=== PATIENT | male | born 1935 | race Caucasian/White ===

== ENCOUNTER 2017-01-05 15:49 | Inpatient (IN) | payer MEDICARE, OTHER ==
[~2017-01-05] VITALS: Ht 177.8 cm; Wt 104.9 kg
[2017-01-05] MEDS ORDERED: ONDANSETRON PF 4 MG/2 ML VIAL. IV ONE (16:15)
[2017-01-05] MEDS ORDERED: IV NORMAL SALINE 500ML BAG 500 ML IV ONE (16:15)
--- NOTE | 2017-01-05 16:15 | PHYS DOC ---
Past Medical History Past Medical History: CAD, Hypertension Additional Past Surgical Histo: coronary stents Adult General Chief Complaint Chief Complaint: SYNCOPE HPI HPI Patient is a 81 year old male who presents after syncopal episode. Patient was at his son's house and was sitting down when he says he started feeling sick, became sweaty, and then passed out. Patient's son reports he was unconscious for approximately 60-90 seconds. Patient back to normal mental status. He still complains of some nausea, but says he is otherwise feeling well other than general weakness. He denies any chest discomfort or shortness of breath at any time. Patient did have a similar episode in the remote past. Review of Systems Review of Systems Constitutional: Syncope, general weakness. Denies fever or chills Eyes: Denies change in visual acuity or eye pain HENT: Denies nasal congestion or sore throat Respiratory: Denies cough or shortness of breath Cardiovascular: Denies chest pain GI: Nausea. Denies abdominal pain, vomiting, bloody stools or diarrhea : Denies dysuria or hematuria Musculoskeletal: Denies back pain or joint pain Integument: Denies rash or skin lesions Neurologic: Denies headache, focal weakness or sensory changes Current Medications Current Medications Current Medications Medications (Trade) Dose Ordered Sig/Maribel Start Time Stop Time Status Last Admin Dose Admin Ondansetron HCl (Zofran) 4 mg 1X ONCE 01/05/17 16:15 01/05/17 17:09 DC 01/05/17 16:15 4 MG Sodium Chloride (Iv Sodium Chloride 0.9% 500ml Bag) 500 ml @ 500 mls/hr 1X ONCE 01/05/17 16:15 01/05/17 17:14 DC 01/05/17 16:15 500 MLS/HR Allergies Allergies Allergies Coded Allergies Type Severity Reaction Last Updated Verified iodine Allergy Intermediate 01/05/17 Yes Physical Exam Physical Exam Constitutional: Well developed, well nourished, no acute distress, non-toxic appearance HENT: Normocephalic, atraumatic, bilateral external ears normal Eyes: PERRL, EOMI, conjunctiva normal, no discharge Neck: Normal range of motion, no stridor Cardiovascular: Bradycardic, regular rhythm, no murmur Lungs & Thorax: Bilateral breath sounds clear to auscultation Abdomen: Bowel sounds normal, soft, non-distended, no TTP Skin: Warm, dry, no erythema, no rash Extremities: No obvious deformity, no edema Neurologic: Alert and oriented X 3, no gross deficits noted Psychologic: Affect normal, judgement normal, mood normal Current Patient Data Vital Signs Vital Signs Date Time Temp Pulse Resp B/P Pulse Ox O2 Delivery O2 Flow Rate FiO2 01/05/17 17:15 62 18 124/66 99 01/05/17 16:50 97.5 Room Air 97.5 Lab Values Laboratory Tests Test 01/05/17 16:10 White Blood Count 10.5x10^3/uL (4.0-11.0) Red Blood Count 4.78x10^6/uL (4.30-5.70) Hemoglobin 14.4g/dL (13.0-17.5) Hematocrit 44.0% (39.0-53.0) Mean Corpuscular Volume 92fL (79-100) Mean Corpuscular Hemoglobin 30pg (25-35) Mean Corpuscular Hemoglobin Concent 33g/dL (31-37) Red Cell Distribution Width 14.3% (11.5-14.5) Platelet Count 176x10^3/uL (140-400) Neutrophils (%) (Auto) 66% (31-73) Lymphocytes (%) (Auto) 21% (24-48) L Monocytes (%) (Auto) 7% (0-9) Eosinophils (%) (Auto) 5% (0-3) H Basophils (%) (Auto) 1% (0-3) Neutrophils # (Auto) 7.0x10^3uL (1.8-7.7) Lymphocytes # (Auto) 2.2x10^3/uL (1.0-4.8) Monocytes # (Auto) 0.8x10^3/uL (0.0-1.1) Eosinophils # (Auto) 0.5x10^3/uL (0.0-0.7) Basophils # (Auto) 0.1x10^3/uL (0.0-0.2) Sodium Level 144mmol/L (136-145) Potassium Level 4.0mmol/L (3.5-5.1) Chloride Level 106mmol/L (98-107) Carbon Dioxide Level 25mmol/L (21-32) Anion Gap 13 (6-14) Blood Urea Nitrogen 21mg/dL (8-26) Creatinine 1.3mg/dL (0.7-1.3) Estimated GFR (Cockcroft-Gault) 53.1 BUN/Creatinine Ratio 16 (6-20) Glucose Level 120mg/dL (70-99) H Calcium Level 9.3mg/dL (8.5-10.1) Magnesium Level 1.9mg/dL (1.8-2.4) Total Bilirubin 0.5mg/dL (0.2-1.0) Aspartate Amino Transferase (AST) 21U/L (15-37) Alanine Aminotransferase (ALT) 25U/L (16-63) Alkaline Phosphatase 86U/L (46-116) Troponin I Quantitative < 0.017ng/mL (0.000-0.055) AE-Ckt-V-Type Natriuretic Peptide 115pg/mL (0-449) Total Protein 6.7g/dL (6.4-8.2) Albumin 3.7g/dL (3.4-5.0) Albumin/Globulin Ratio 1.2 (1.0-1.7) Laboratory Tests 01/05/17 16:10 Laboratory Tests 01/05/17 16:10 EKG EKG EKG (my read): sinus bradycardia, rate 54, normal axis, single PVC, no acute ST/ T changes Radiology/Procedures Radiology/Procedures CXR: IMPRESSION: No definite focal airspace consolidation. Course & Med Decision Making Course & Med Decision Making Pertinent Labs and Imaging studies reviewed. (See chart for details) Patient is 81-year-old male who presents after syncopal episode. Concern for possible serious etiology given age and cardiac history. Will check EKG, chest x -ray, labs to evaluate. Fluid bolus and dose of Zofran ordered for relief of symptoms. EKG notable for bradycardia, patient takes metoprolol which could be related to syncope. Chest x-ray results as above. Lab results unremarkable. Discussed results with patient and family. Discussed with Dr. Green, will admit under her care for further evaluation and treatment. Dragon Disclaimer Dragon Disclaimer This electronic medical record was generated, in whole or in part, using a voice recognition dictation system. Departure Departure Impression: Primary Impression: Syncope Additional Impression: Bradycardia Disposition: 09 ADMITTED INPATIENT Admitting Physician: Peter, Cunmei Condition: GUARDED Problem Qualifiers HOSEA ROBIN MD Jan 05, 2017 16:15
--- NOTE | 2017-01-05 16:45 | RAD ---
INDICATION: syncope, r/o acute process COMPARISON: None. FINDINGS: Single view of chest obtained. Calcific atherosclerosis. No definite focal airspace consolidation or edema. No grossly displaced acute appearing fracture. IMPRESSION: No definite focal airspace consolidation.
[2017-01-05 17:14] LABS: BASO # 0.1 x10^3/uL (0.0-0.2); BASO % 1 % (0-3); EOS % 5 % (0-3); HEMOGLOBIN 14.4 g/dL (13.0-17.5); LYMPH # 2.2 x10^3/uL (1.0-4.8); LYMPH % 21 % (24-48); MEAN CORPUSCULAR HEMOGLOBIN 30 pg (25-35); MEAN CORPUSCULAR HGB CONC 33 g/dL (31-37); MEAN CORPUSCULAR VOLUME 92 fL (79-100); MONO % 7 % (0-9); NEUT % 66 % (31-73); PLATELET COUNT 176 x10^3/uL (140-400); RED BLOOD COUNT 4.78 x10^6/uL (4.30-5.70); RED CELL DISTRIBUTION WIDTH 14.3 % (11.5-14.5); WHITE BLOOD COUNT 10.5 x10^3/uL (4.0-11.0)
--- NOTE | 2017-01-05 17:20 | EKG ---
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
[2017-01-05 17:31] LABS: CALCIUM 9.3 mg/dL (8.5-10.1); CREATININE 1.3 mg/dL (0.7-1.3); GFR 53.1
[2017-01-05 17:33] LABS: ALBUMIN 3.7 g/dL (3.4-5.0); ALBUMIN/GLOBULIN RATIO 1.2 (1.0-1.7); MAGNESIUM 1.9 mg/dL (1.8-2.4); TOTAL BILIRUBIN 0.5 mg/dL (0.2-1.0); TOTAL PROTEIN 6.7 g/dL (6.4-8.2)
[2017-01-05] MEDS ORDERED: ONDANSETRON PF 4 MG/2 ML VIAL. IV PRN ×2 (18:00→18:30)
[2017-01-05] MEDS ORDERED: ACETAMINOPHEN 325 MG TABLET. PO PRN ×2 (18:00→18:30)
[2017-01-05] MEDS ORDERED: hydrALAZINE 20 MG/ML VIAL. IVP PRN (18:30)
[2017-01-05] MEDS ORDERED: ALBUTEROL SULFATE 2.5 MG/3 ML NEBU. NEB PRN (18:30)
--- NOTE | 2017-01-05 18:31 | PDOC1 ---
History and Physical Date of Admission Date of Admission 01/05/17 Identification/Chief Complaint Chief Complaint syncope Problems: Source Source: Chart review, Patient History of Present Illness History of Present Illness 81yo M, HTN, cad , COMES for syncope. He smoked cigar with his son today as usual. then came back home, sitting down, had coffee and muffin, then he started to cough "clearing up the throat", then syncoped, falling backwards in the chair, for 1min. He woke up, with some cold, diaphoresis, mild confusion for about 20min, denies bitting tongue, chest pain, sob. He still feels like to cough a little bit. Before the syncope, he was doing fine, no fever, chills, no severe cough or sob , N/V. HE was found sourav in ER, with metoprolol. Past Medical History Cardiovascular: CAD, HTN Past Surgical History Past Surgical History: No pertinent history Family History Family History: No Significant Social History Smoke: <1 pack per day ALCOHOL: social Drugs: None Current Problem List Problem List Problems Medical Problems: (1) Bradycardia Status: Acute (2) Syncope Status: Acute Current Medications Current Medications Current Medications Medications (Trade) Dose Ordered Sig/Maribel Start Time Stop Time Status Last Admin Dose Admin Acetaminophen (Tylenol) 650 mg PRN Q4HRS PRN 01/05/17 18:00 01/06/17 17:59 Ondansetron HCl (Zofran) 4 mg PRN Q8HRS PRN 01/05/17 18:00 01/06/17 17:59 Sodium Chloride (Iv Sodium Chloride 0.9% 500ml Bag) 500 ml @ 500 mls/hr 1X ONCE 01/05/17 16:15 01/05/17 17:14 DC 01/05/17 16:15 500 MLS/HR Allergies Allergies Allergies Coded Allergies Type Severity Reaction Last Updated Verified iodine Allergy Intermediate 01/05/17 Yes morphine Adverse Reaction Intermediate VISUAL AND AUDITORY HALLUCINATIONS 01/05 Yes ROS Review of System CONSTITUTIONAL: No fever or chills EYES: No recent changes SKIN: No rash or itching CARDIOVASCULAR: No chest pain, syncope, palpitations, or edema RESPIRATORY: No SOB or cough GASTROINTESTINAL: No nausea, vomiting or abdominal pain NEUROLOGICAL: No headaches or weakness ENDOCRINE: No cold or heat intolerance GENITOURINARY: No urgency or frequency of urination MUSCULOSKELETAL: No back pain or joint pain LYMPHATICS: No enlarged lymph nodes PSYCHIATRIC: No anxiety or depression Physical Exam Physical Exam GEN.: No apparent distress. Alert and oriented. HEENT: Head is normocephalic, atraumatic, hearing loss NECK: Supple. LUNGS: Clear to auscultation. HEART: RRR, S1, S2 present. Peripheral pulses intact ABDOMEN: Soft, nontender. Positive bowel sounds. EXTREMITIES: Without any cyanosis. NEUROLOGIC: Normal speech, normal tone PSYCHIATRIC: Normal affect, normal mood. SKIN: No ulcerations Vitals Vitals Vital Signs Date Time Temp Pulse Resp B/P Pulse Ox O2 Delivery O2 Flow Rate FiO2 01/05/17 17:15 62 18 124/66 99 01/05/17 16:50 97.5 Room Air 97.5 Labs Labs Laboratory Tests Test 01/05/17 16:10 White Blood Count 10.5x10^3/uL (4.0-11.0) Red Blood Count 4.78x10^6/uL (4.30-5.70) Hemoglobin 14.4g/dL (13.0-17.5) Hematocrit 44.0% (39.0-53.0) Mean Corpuscular Volume 92fL (79-100) Mean Corpuscular Hemoglobin 30pg (25-35) Mean Corpuscular Hemoglobin Concent 33g/dL (31-37) Red Cell Distribution Width 14.3% (11.5-14.5) Platelet Count 176x10^3/uL (140-400) Neutrophils (%) (Auto) 66% (31-73) Lymphocytes (%) (Auto) 21% (24-48) Monocytes (%) (Auto) 7% (0-9) Eosinophils (%) (Auto) 5% (0-3) Basophils (%) (Auto) 1% (0-3) Neutrophils # (Auto) 7.0x10^3uL (1.8-7.7) Lymphocytes # (Auto) 2.2x10^3/uL (1.0-4.8) Monocytes # (Auto) 0.8x10^3/uL (0.0-1.1) Eosinophils # (Auto) 0.5x10^3/uL (0.0-0.7) Basophils # (Auto) 0.1x10^3/uL (0.0-0.2) Sodium Level 144mmol/L (136-145) Potassium Level 4.0mmol/L (3.5-5.1) Chloride Level 106mmol/L (98-107) Carbon Dioxide Level 25mmol/L (21-32) Anion Gap 13 (6-14) Blood Urea Nitrogen 21mg/dL (8-26) Creatinine 1.3mg/dL (0.7-1.3) Estimated GFR (Cockcroft-Gault) 53.1 BUN/Creatinine Ratio 16 (6-20) Glucose Level 120mg/dL (70-99) Calcium Level 9.3mg/dL (8.5-10.1) Magnesium Level 1.9mg/dL (1.8-2.4) Total Bilirubin 0.5mg/dL (0.2-1.0) Aspartate Amino Transf (AST/SGOT) 21U/L (15-37) Alanine Aminotransferase (ALT/SGPT) 25U/L (16-63) Alkaline Phosphatase 86U/L (46-116) Troponin I Quantitative < 0.017ng/mL (0.000-0.055) WT-Bhr-D-Type Natriuretic Peptide 115pg/mL (0-449) Total Protein 6.7g/dL (6.4-8.2) Albumin 3.7g/dL (3.4-5.0) Albumin/Globulin Ratio 1.2 (1.0-1.7) Laboratory Tests Test 01/05/17 16:10 White Blood Count 10.5x10^3/uL (4.0-11.0) Red Blood Count 4.78x10^6/uL (4.30-5.70) Hemoglobin 14.4g/dL (13.0-17.5) Hematocrit 44.0% (39.0-53.0) Mean Corpuscular Volume 92fL (79-100) Mean Corpuscular Hemoglobin 30pg (25-35) Mean Corpuscular Hemoglobin Concent 33g/dL (31-37) Red Cell Distribution Width 14.3% (11.5-14.5) Platelet Count 176x10^3/uL (140-400) Neutrophils (%) (Auto) 66% (31-73) Lymphocytes (%) (Auto) 21% (24-48) Monocytes (%) (Auto) 7% (0-9) Eosinophils (%) (Auto) 5% (0-3) Basophils (%) (Auto) 1% (0-3) Neutrophils # (Auto) 7.0x10^3uL (1.8-7.7) Lymphocytes # (Auto) 2.2x10^3/uL (1.0-4.8) Monocytes # (Auto) 0.8x10^3/uL (0.0-1.1) Eosinophils # (Auto) 0.5x10^3/uL (0.0-0.7) Basophils # (Auto) 0.1x10^3/uL (0.0-0.2) Sodium Level 144mmol/L (136-145) Potassium Level 4.0mmol/L (3.5-5.1) Chloride Level 106mmol/L (98-107) Carbon Dioxide Level 25mmol/L (21-32) Anion Gap 13 (6-14) Blood Urea Nitrogen 21mg/dL (8-26) Creatinine 1.3mg/dL (0.7-1.3) Estimated GFR (Cockcroft-Gault) 53.1 BUN/Creatinine Ratio 16 (6-20) Glucose Level 120mg/dL (70-99) Calcium Level 9.3mg/dL (8.5-10.1) Magnesium Level 1.9mg/dL (1.8-2.4) Total Bilirubin 0.5mg/dL (0.2-1.0) Aspartate Amino Transf (AST/SGOT) 21U/L (15-37) Alanine Aminotransferase (ALT/SGPT) 25U/L (16-63) Alkaline Phosphatase 86U/L (46-116) Troponin I Quantitative < 0.017ng/mL (0.000-0.055) LT-Yyz-V-Type Natriuretic Peptide 115pg/mL (0-449) Total Protein 6.7g/dL (6.4-8.2) Albumin 3.7g/dL (3.4-5.0) Albumin/Globulin Ratio 1.2 (1.0-1.7) VTE Prophylaxis Ordered VTE Prophylaxis Devices: Yes VTE Pharmacological Prophylaxi: Yes Assessment/Plan Assessment/Plan 1. syncope, 2/2 vasovagal possibly 2. bradycardia, sinus, on metoprolol 3. h/o CAD with 2 stents 2003, 2011 4. HTN 5. smoke cigars plan: 1. neuro, card consult 2. hold metoprolol if cont sourav, now HR 80s 3. need home meds 4. check orthostatic BP 5. PTOT dvt ppx BRIANNA GERMAN MD Jan 05, 2017 18:31
[2017-01-05 19:50] VITALS: BP 140/70
[2017-01-05] MEDS ORDERED: LOVA40TA2 PO (20:53)
[2017-01-05] MEDS ORDERED: GABA-586 PO (20:53)
[2017-01-05] MEDS ORDERED: PANT20TA2 PO (20:53)
[2017-01-05] MEDS ORDERED: LISI-334 PO (20:53)
[2017-01-05] MEDS ORDERED: ASPI81TA50 PO (20:53)
[2017-01-05] MEDS ORDERED: LORA10TA3 PO (20:53)
[2017-01-05] MEDS ORDERED: METO25TA4 PO (20:53)
[2017-01-05] MEDS: METOPROLOL TART IMMED RELEASE 25 MG TABLET PO SCH (20:59)
[2017-01-05] MEDS: ATORVASTATIN CALCIUM 10 MG TABLET. PO SCH (21:56)
[2017-01-05] MEDS: GABAPENTIN 300 MG CAPSULE. PO SCH (21:57)
[2017-01-05] MEDS ORDERED: BENZOCAINE/MENTHOL LOZENGE. PO PRN (22:15)
[2017-01-05 23:33] VITALS: BP 119/70
[2017-01-06] VITALS (7 sets, daily range): BP systolic 119–156; BP diastolic 52–90
--- NOTE | 2017-01-06 00:25 | ACF ---
Admission Forms Criteria SYNCOPE Clinical Indications for Admission to Inpatient Care ( Place 'X' for any and all applicable criteria): Admission is indicated for syncope and ANY ONE of the following (1)(2)(3)(4)(5) (6)(7) : [X ]I. Inpatient admission required rather than observation care (Also use Syncope: Observation Care Criteria as appropriate) because of ANY ONE of the following: [ ]a) Hemodynamic instability that is severe or persistent [X ]b) Cardiac arrhythmias of immediate concern identified or strongly suspected (eg, needs electrophysiologic study) [ ]c) Acute coronary syndrome identified (Also use Myocardial Infarction or Angina Criteria form ) [ ]d) Structural cardiac disorder (eg, aortic stenosis) suspected as cause that requires immediate correction [ ]e) Respiratory symptoms (eg, dyspnea, tachypnea) that are severe or persistent [ ]f) Neurologic signs or symptoms that are severe or persistent ( eg, stroke, seizures, altered mental status) [ ]g) Severe electrolyte abnormalities requiring inpatient care [ ]h) Supplemental oxygen or respiratory treatment for over 24 hrs that are performable only in acute inpatient setting [ ]i) IV fluid to replace significant ongoing (eg, for over 24 hrs ) losses (>3 L/m2 per day) [ ]j) Continuous intravenous infusion of anticoagulation, platelet inhibitor, vasoactive, or antiarrhythmic medication(15)(16) [ ]k) Pulmonary artery catheter monitoring [ ]l) Temporary pacemaker placement(17) [ ]m) Emergent cardioversion(18) [ X]n) Other conditions, treatment or monitoring requiring inpatient admission [ ]II. Suspicion of imminently dangerous cause (eg, rare causes like pericardial tamponade, pulmonary embolism) [ ]III. Syncope causing severe injury requiring hospitalization Extended stay beyond goal length of stay may be needed for(28) [ ]a) Dangerous arrhythmia(15)(23)(27)(29) [ ]b) Myocardial ischemia [ ]c) Seizure disorder [ ]d) Syncope-related injuries The original [employer] content created by [employer] has been revised. The portions of the content which have been revised are identified through the use of italic text or in bold, and [employer] has neither reviewed nor approved the modified material. All other unmodified content is copyright [employer]. Please see references footnoted in the original [facility] edition 2016 Admission Criteria Met?: Yes KENIA ZHANG Jan 06, 2017 00:25
[2017-01-06 05:54] LABS: BASO % 1 % (0-3); EOS % 6 % (0-3); HEMATOCRIT 40.2 % (39.0-53.0); HEMOGLOBIN 13.2 g/dL (13.0-17.5); LYMPH # 1.5 x10^3/uL (1.0-4.8); LYMPH % 20 % (24-48); MEAN CORPUSCULAR HEMOGLOBIN 30 pg (25-35); MEAN CORPUSCULAR HGB CONC 33 g/dL (31-37); MEAN CORPUSCULAR VOLUME 91 fL (79-100); MONO % 9 % (0-9); NEUT % 64 % (31-73); PLATELET COUNT 150 x10^3/uL (140-400); RED CELL DISTRIBUTION WIDTH 14.2 % (11.5-14.5); WHITE BLOOD COUNT 7.5 x10^3/uL (4.0-11.0)
[2017-01-06 06:36] LABS: CALCIUM 8.6 mg/dL (8.5-10.1); CREATININE 1.1 mg/dL (0.7-1.3); GFR 64.4; POTASSIUM 4.1 mmol/L (3.5-5.1)
[2017-01-06] MEDS ORDERED: CETIRIZINE HCL 10 MG TABLET PO PRN (09:00)
[2017-01-06] MEDS: ASPIRIN ENTERIC COATED 81 MG TABLET.DR. PO SCH (09:00)
[2017-01-06] MEDS: PANTOPRAZOLE 40 MG TABLET. PO SCH (09:00)
[2017-01-06] MEDS: LISINOPRIL 20 MG TABLET PO SCH (09:01)
[2017-01-06] MEDS: METOPROLOL TART IMMED RELEASE 25 MG TABLET PO SCH (09:01)
--- NOTE | 2017-01-06 09:15 | PDOC2 ---
CARDIAC CONSULT DATE OF CONSULT Date of Consult DATE: 01/06/17 TIME: 09:12 REASON FOR CONSULT Reason for Consult: syncope, bradycardia REFERRING PHYSICIAN Referring Physician: Dr. Gaxiola SOURCE Source: Chart review, Patient HISTORY OF PRESENT ILLNESS HISTORY OF PRESENT ILLNESS This is an 81 male who presented secondary to syncopal episode. Patient reports he was sitting in chair yesterday afternoon when episode occurred. Reports feeling weak, nauseated, and diaphoretic, then subsequently passed out. reports complete LOC for approximately 1-2 minutes. EMS was called. reports HR was 39 upon EMS arrival. No previous syncopal episodes. Denies any chest pain, palpitations, SOA, HERRERA, or LE edema. No recent illness or fevers. Does have a h/o CAD with remote PCI/stenting and follows with Dr. Kong at [facility]. Most recent cath approximately 2 yrs ago and did not require intervention. No recent echocardiogram. PAST MEDICAL HISTORY Cardiovascular: CAD (s/p PCI/stents 2001, 2011), HTN, Hyperlipidemia Pulmonary: Asthma CENTRAL NERVOUS SYSTEM: Other (no pertinent hx) GI: GERD Heme/Onc: No pertinent hx Hepatobiliary: No pertinent hx Psych: No pertinent hx Musculoskeletal: Osteoarthritis Rheumatologic: No pertinent hx Infectious disease: No pertinent hx ENT: No pertinent hx Renal/: Benign prostatic enlarg. Endocrine: No pertinent hx Dermatology: No pertinent hx PAST SURGICAL HISTORY Past Surgical History: Total hip replacement (right ), Tonsillectomy, Other FAMILY HISTORY Family History: Coronary Artery Disease, Heart Disease, Hypertension SOCIAL HISTORY Smoke: No ALCOHOL: none Drugs: None Lives: with Family CURRENT MEDICATIONS CURRENT MEDICATIONS Current Medications Medications (Trade) Dose Ordered Sig/Maribel Route PRN Reason Start Time Stop Time Status Last Admin Dose Admin Sodium Chloride (Iv Sodium Chloride 0.9% 500ml Bag) 500 ml @ 500 mls/hr 1X ONCE IV 01/05/17 16:15 01/05/17 17:14 DC 01/05/17 16:15 Ondansetron HCl (Zofran) 4 mg 1X ONCE IV 01/05/17 16:15 01/05/17 17:09 DC 01/05/17 16:15 Aspirin (Ecotrin) 81 mg DAILY PO 01/06/17 09:00 01/06/17 09:00 Gabapentin (Neurontin) 300 mg HS PO 01/05/17 21:00 01/05/17 21:57 Lisinopril (Prinivil) 20 mg DAILY PO 01/06/17 09:00 01/06/17 09:01 Metoprolol Tartrate (Lopressor) 12.5 mg BID PO 01/05/17 21:00 01/06/17 09:01 Atorvastatin Calcium (Lipitor) 10 mg QHS PO 01/05/17 21:00 01/05/17 21:56 Pantoprazole Sodium (Protonix) 40 mg DAILYAC PO 01/06/17 07:30 01/06/17 09:00 Throat Lozenges (Cepacol Sore Throat Lozenge) 1 willy PRN Q2HRS PRN PO SORE THROAT 01/05/17 22:15 01/05/17 22:46 ALLERGIES ALLERGIES: Coded Allergies: iodine (Verified Allergy, Intermediate, 01/05/17) morphine (Verified Adverse Reaction, Intermediate, VISUAL AND AUDITORY HALLUCINATIONS, 01/05/17) ROS Review of System 14 point ROS conducted with pertinent positives noted above in HPI PHYSICAL EXAM General: Alert, Oriented X3, Cooperative, No acute distress HEENT: Atraumatic, Mucous membr. moist/pink Lungs: Clear to auscultation, Normal air movement Heart: Regular rate, Normal S1, Normal S2 Abdomen: Normal bowel sounds, Soft Extremities: No edema, Normal pulses Skin: No breakdown, No significant lesion Neuro: Normal speech, Sensation intact Psych/Mental Status: Mental status NL, Mood NL MUSCULOSKELETAL: Osteoarthritic changes both hands VITALS VITALS Vital Signs Date Time Temp Pulse Resp B/P Pulse Ox O2 Delivery O2 Flow Rate FiO2 01/06/17 09:01 74 140/73 01/06/17 07:00 98.4 18 96 Room Air 98.4 LABS Lab: Laboratory Tests Test 01/05/17 16:10 01/05/17 22:00 01/06/17 05:35 White Blood Count 10.5x10^3/uL (4.0-11.0) 7.5x10^3/uL (4.0-11.0) Red Blood Count 4.78x10^6/uL (4.30-5.70) 4.40x10^6/uL (4.30-5.70) Hemoglobin 14.4g/dL (13.0-17.5) 13.2g/dL (13.0-17.5) Hematocrit 44.0% (39.0-53.0) 40.2% (39.0-53.0) Mean Corpuscular Volume 92fL (79-100) 91fL (79-100) Mean Corpuscular Hemoglobin 30pg (25-35) 30pg (25-35) Mean Corpuscular Hemoglobin Concent 33g/dL (31-37) 33g/dL (31-37) Red Cell Distribution Width 14.3% (11.5-14.5) 14.2% (11.5-14.5) Platelet Count 176x10^3/uL (140-400) 150x10^3/uL (140-400) Neutrophils (%) (Auto) 66% (31-73) 64% (31-73) Lymphocytes (%) (Auto) 21% (24-48) 20% (24-48) Monocytes (%) (Auto) 7% (0-9) 9% (0-9) Eosinophils (%) (Auto) 5% (0-3) 6% (0-3) Basophils (%) (Auto) 1% (0-3) 1% (0-3) Neutrophils # (Auto) 7.0x10^3uL (1.8-7.7) 4.8x10^3uL (1.8-7.7) Lymphocytes # (Auto) 2.2x10^3/uL (1.0-4.8) 1.5x10^3/uL (1.0-4.8) Monocytes # (Auto) 0.8x10^3/uL (0.0-1.1) 0.7x10^3/uL (0.0-1.1) Eosinophils # (Auto) 0.5x10^3/uL (0.0-0.7) 0.4x10^3/uL (0.0-0.7) Basophils # (Auto) 0.1x10^3/uL (0.0-0.2) 0.0x10^3/uL (0.0-0.2) Sodium Level 144mmol/L (136-145) 144mmol/L (136-145) Potassium Level 4.0mmol/L (3.5-5.1) 4.1mmol/L (3.5-5.1) Chloride Level 106mmol/L (98-107) 108mmol/L (98-107) Carbon Dioxide Level 25mmol/L (21-32) 28mmol/L (21-32) Anion Gap 13 (6-14) 8 (6-14) Blood Urea Nitrogen 21mg/dL (8-26) 19mg/dL (8-26) Creatinine 1.3mg/dL (0.7-1.3) 1.1mg/dL (0.7-1.3) Estimated GFR (Cockcroft-Gault) 53.1 64.4 BUN/Creatinine Ratio 16 (6-20) Glucose Level 120mg/dL (70-99) 102mg/dL (70-99) Calcium Level 9.3mg/dL (8.5-10.1) 8.6mg/dL (8.5-10.1) Magnesium Level 1.9mg/dL (1.8-2.4) Total Bilirubin 0.5mg/dL (0.2-1.0) Aspartate Amino Transf (AST/SGOT) 21U/L (15-37) Alanine Aminotransferase (ALT/SGPT) 25U/L (16-63) Alkaline Phosphatase 86U/L (46-116) Troponin I Quantitative < 0.017ng/mL (0.000-0.055) < 0.017ng/mL (0.000-0.055) < 0.017ng/mL (0.000-0.055) XE-Avf-C-Type Natriuretic Peptide 115pg/mL (0-449) Total Protein 6.7g/dL (6.4-8.2) Albumin 3.7g/dL (3.4-5.0) Albumin/Globulin Ratio 1.2 (1.0-1.7) ASSESSMENT/PLAN ASSESSMENT/PLAN 1. syncope check echo to r/o contributing cardiac anomalies continue to monitor telemetry if tele/echo unrevealing, plan for event monitor at discharge. 2. bradycardia HR 39 upon EMS arrival per report no further significant bradycardia noted on telemetry -continue monitoring hold av kishan blocking agents 3. CAD s/p PCI/stenting 2011 stable. CP free continue secondary prevention 4. Hypertension controlled. 5. HLP statin therapy Problems: AZAM AVILEZ APRN Jan 06, 2017 09:15
--- NOTE | 2017-01-06 13:33 | PDOC ---
PROGRESS NOTES Chief Complaint Chief Complaint 1. syncope, 2/2 vasovagal possibly 2. bradycardia, sinus, on metoprolol 3. h/o CAD with 2 stents 2003, 2011 4. HTN 5. smoke cigars History of Present Illness History of Present Illness NO issues Wants to go home soon Claims he has no PT needs Follows with Dr. Kong (cards at [facility])\ Family at bedside PLAN: Work up of syncope on the way per cards Cancel PT/OT Dw family stays overnight - bB has been stopped sec to bradycardia Vitals Vitals Vital Signs Date Time Temp Pulse Resp B/P Pulse Ox O2 Delivery O2 Flow Rate FiO2 01/06/17 11:16 98.8 79 18 131/65 92 Room Air 98.8 Physical Exam General: Alert, Oriented X3, Cooperative, No acute distress Heart: Regular rate, Normal S1, Normal S2 Abdomen: Normal bowel sounds, Soft Extremities: No edema, Normal pulses Skin: No breakdown, No significant lesion Labs LABS Laboratory Tests Test 01/05/17 16:10 01/05/17 22:00 01/06/17 05:35 White Blood Count 10.5x10^3/uL (4.0-11.0) 7.5x10^3/uL (4.0-11.0) Red Blood Count 4.78x10^6/uL (4.30-5.70) 4.40x10^6/uL (4.30-5.70) Hemoglobin 14.4g/dL (13.0-17.5) 13.2g/dL (13.0-17.5) Hematocrit 44.0% (39.0-53.0) 40.2% (39.0-53.0) Mean Corpuscular Volume 92fL (79-100) 91fL (79-100) Mean Corpuscular Hemoglobin 30pg (25-35) 30pg (25-35) Mean Corpuscular Hemoglobin Concent 33g/dL (31-37) 33g/dL (31-37) Red Cell Distribution Width 14.3% (11.5-14.5) 14.2% (11.5-14.5) Platelet Count 176x10^3/uL (140-400) 150x10^3/uL (140-400) Neutrophils (%) (Auto) 66% (31-73) 64% (31-73) Lymphocytes (%) (Auto) 21% (24-48) 20% (24-48) Monocytes (%) (Auto) 7% (0-9) 9% (0-9) Eosinophils (%) (Auto) 5% (0-3) 6% (0-3) Basophils (%) (Auto) 1% (0-3) 1% (0-3) Neutrophils # (Auto) 7.0x10^3uL (1.8-7.7) 4.8x10^3uL (1.8-7.7) Lymphocytes # (Auto) 2.2x10^3/uL (1.0-4.8) 1.5x10^3/uL (1.0-4.8) Monocytes # (Auto) 0.8x10^3/uL (0.0-1.1) 0.7x10^3/uL (0.0-1.1) Eosinophils # (Auto) 0.5x10^3/uL (0.0-0.7) 0.4x10^3/uL (0.0-0.7) Basophils # (Auto) 0.1x10^3/uL (0.0-0.2) 0.0x10^3/uL (0.0-0.2) Sodium Level 144mmol/L (136-145) 144mmol/L (136-145) Potassium Level 4.0mmol/L (3.5-5.1) 4.1mmol/L (3.5-5.1) Chloride Level 106mmol/L (98-107) 108mmol/L (98-107) Carbon Dioxide Level 25mmol/L (21-32) 28mmol/L (21-32) Anion Gap 13 (6-14) 8 (6-14) Blood Urea Nitrogen 21mg/dL (8-26) 19mg/dL (8-26) Creatinine 1.3mg/dL (0.7-1.3) 1.1mg/dL (0.7-1.3) Estimated GFR (Cockcroft-Gault) 53.1 64.4 BUN/Creatinine Ratio 16 (6-20) Glucose Level 120mg/dL (70-99) 102mg/dL (70-99) Calcium Level 9.3mg/dL (8.5-10.1) 8.6mg/dL (8.5-10.1) Magnesium Level 1.9mg/dL (1.8-2.4) Total Bilirubin 0.5mg/dL (0.2-1.0) Aspartate Amino Transf (AST/SGOT) 21U/L (15-37) Alanine Aminotransferase (ALT/SGPT) 25U/L (16-63) Alkaline Phosphatase 86U/L (46-116) Troponin I Quantitative < 0.017ng/mL (0.000-0.055) < 0.017ng/mL (0.000-0.055) < 0.017ng/mL (0.000-0.055) NQ-Qow-Z-Type Natriuretic Peptide 115pg/mL (0-449) Total Protein 6.7g/dL (6.4-8.2) Albumin 3.7g/dL (3.4-5.0) Albumin/Globulin Ratio 1.2 (1.0-1.7) Review of Systems Review of Systems denies all 14 pt systems Assessment and Plan Assessmemt and Plan Problems Medical Problems: (1) Bradycardia Status: Acute (2) Syncope Status: Acute Problems: Comment Review of Relevant I have reviewed the following items aiden (where applicable) has been applied. Labs Laboratory Tests Test 01/05/17 16:10 01/05/17 22:00 01/06/17 05:35 White Blood Count 10.5x10^3/uL (4.0-11.0) 7.5x10^3/uL (4.0-11.0) Red Blood Count 4.78x10^6/uL (4.30-5.70) 4.40x10^6/uL (4.30-5.70) Hemoglobin 14.4g/dL (13.0-17.5) 13.2g/dL (13.0-17.5) Hematocrit 44.0% (39.0-53.0) 40.2% (39.0-53.0) Mean Corpuscular Volume 92fL (79-100) 91fL (79-100) Mean Corpuscular Hemoglobin 30pg (25-35) 30pg (25-35) Mean Corpuscular Hemoglobin Concent 33g/dL (31-37) 33g/dL (31-37) Red Cell Distribution Width 14.3% (11.5-14.5) 14.2% (11.5-14.5) Platelet Count 176x10^3/uL (140-400) 150x10^3/uL (140-400) Neutrophils (%) (Auto) 66% (31-73) 64% (31-73) Lymphocytes (%) (Auto) 21% (24-48) 20% (24-48) Monocytes (%) (Auto) 7% (0-9) 9% (0-9) Eosinophils (%) (Auto) 5% (0-3) 6% (0-3) Basophils (%) (Auto) 1% (0-3) 1% (0-3) Neutrophils # (Auto) 7.0x10^3uL (1.8-7.7) 4.8x10^3uL (1.8-7.7) Lymphocytes # (Auto) 2.2x10^3/uL (1.0-4.8) 1.5x10^3/uL (1.0-4.8) Monocytes # (Auto) 0.8x10^3/uL (0.0-1.1) 0.7x10^3/uL (0.0-1.1) Eosinophils # (Auto) 0.5x10^3/uL (0.0-0.7) 0.4x10^3/uL (0.0-0.7) Basophils # (Auto) 0.1x10^3/uL (0.0-0.2) 0.0x10^3/uL (0.0-0.2) Sodium Level 144mmol/L (136-145) 144mmol/L (136-145) Potassium Level 4.0mmol/L (3.5-5.1) 4.1mmol/L (3.5-5.1) Chloride Level 106mmol/L (98-107) 108mmol/L (98-107) Carbon Dioxide Level 25mmol/L (21-32) 28mmol/L (21-32) Anion Gap 13 (6-14) 8 (6-14) Blood Urea Nitrogen 21mg/dL (8-26) 19mg/dL (8-26) Creatinine 1.3mg/dL (0.7-1.3) 1.1mg/dL (0.7-1.3) Estimated GFR (Cockcroft-Gault) 53.1 64.4 BUN/Creatinine Ratio 16 (6-20) Glucose Level 120mg/dL (70-99) 102mg/dL (70-99) Calcium Level 9.3mg/dL (8.5-10.1) 8.6mg/dL (8.5-10.1) Magnesium Level 1.9mg/dL (1.8-2.4) Total Bilirubin 0.5mg/dL (0.2-1.0) Aspartate Amino Transf (AST/SGOT) 21U/L (15-37) Alanine Aminotransferase (ALT/SGPT) 25U/L (16-63) Alkaline Phosphatase 86U/L (46-116) Troponin I Quantitative < 0.017ng/mL (0.000-0.055) < 0.017ng/mL (0.000-0.055) < 0.017ng/mL (0.000-0.055) PW-Nxo-J-Type Natriuretic Peptide 115pg/mL (0-449) Total Protein 6.7g/dL (6.4-8.2) Albumin 3.7g/dL (3.4-5.0) Albumin/Globulin Ratio 1.2 (1.0-1.7) Laboratory Tests Test 01/05/17 16:10 01/05/17 22:00 01/06/17 05:35 White Blood Count 10.5x10^3/uL (4.0-11.0) 7.5x10^3/uL (4.0-11.0) Red Blood Count 4.78x10^6/uL (4.30-5.70) 4.40x10^6/uL (4.30-5.70) Hemoglobin 14.4g/dL (13.0-17.5) 13.2g/dL (13.0-17.5) Hematocrit 44.0% (39.0-53.0) 40.2% (39.0-53.0) Mean Corpuscular Volume 92fL (79-100) 91fL (79-100) Mean Corpuscular Hemoglobin 30pg (25-35) 30pg (25-35) Mean Corpuscular Hemoglobin Concent 33g/dL (31-37) 33g/dL (31-37) Red Cell Distribution Width 14.3% (11.5-14.5) 14.2% (11.5-14.5) Platelet Count 176x10^3/uL (140-400) 150x10^3/uL (140-400) Neutrophils (%) (Auto) 66% (31-73) 64% (31-73) Lymphocytes (%) (Auto) 21% (24-48) 20% (24-48) Monocytes (%) (Auto) 7% (0-9) 9% (0-9) Eosinophils (%) (Auto) 5% (0-3) 6% (0-3) Basophils (%) (Auto) 1% (0-3) 1% (0-3) Neutrophils # (Auto) 7.0x10^3uL (1.8-7.7) 4.8x10^3uL (1.8-7.7) Lymphocytes # (Auto) 2.2x10^3/uL (1.0-4.8) 1.5x10^3/uL (1.0-4.8) Monocytes # (Auto) 0.8x10^3/uL (0.0-1.1) 0.7x10^3/uL (0.0-1.1) Eosinophils # (Auto) 0.5x10^3/uL (0.0-0.7) 0.4x10^3/uL (0.0-0.7) Basophils # (Auto) 0.1x10^3/uL (0.0-0.2) 0.0x10^3/uL (0.0-0.2) Sodium Level 144mmol/L (136-145) 144mmol/L (136-145) Potassium Level 4.0mmol/L (3.5-5.1) 4.1mmol/L (3.5-5.1) Chloride Level 106mmol/L (98-107) 108mmol/L (98-107) Carbon Dioxide Level 25mmol/L (21-32) 28mmol/L (21-32) Anion Gap 13 (6-14) 8 (6-14) Blood Urea Nitrogen 21mg/dL (8-26) 19mg/dL (8-26) Creatinine 1.3mg/dL (0.7-1.3) 1.1mg/dL (0.7-1.3) Estimated GFR (Cockcroft-Gault) 53.1 64.4 BUN/Creatinine Ratio 16 (6-20) Glucose Level 120mg/dL (70-99) 102mg/dL (70-99) Calcium Level 9.3mg/dL (8.5-10.1) 8.6mg/dL (8.5-10.1) Magnesium Level 1.9mg/dL (1.8-2.4) Total Bilirubin 0.5mg/dL (0.2-1.0) Aspartate Amino Transf (AST/SGOT) 21U/L (15-37) Alanine Aminotransferase (ALT/SGPT) 25U/L (16-63) Alkaline Phosphatase 86U/L (46-116) Troponin I Quantitative < 0.017ng/mL (0.000-0.055) < 0.017ng/mL (0.000-0.055) < 0.017ng/mL (0.000-0.055) IK-Szg-G-Type Natriuretic Peptide 115pg/mL (0-449) Total Protein 6.7g/dL (6.4-8.2) Albumin 3.7g/dL (3.4-5.0) Albumin/Globulin Ratio 1.2 (1.0-1.7) Medications Current Medications Sodium Chloride (Iv Sodium Chloride 0.9% 500ml Bag) 500 ml @ 500 mls/hr 1X ONCE IV Last administered on 01/05/17 16:15; Start 01/05/17 at 16:15; Stop at 17:14; Status DC Ondansetron HCl (Zofran) 4 mg 1X ONCE IV Last administered on 01/05/17t 16:15 ; Start 01/05/17 at 16:15; Stop 01/05/17 at 17:09; Status DC Ondansetron HCl (Zofran) 4 mg PRN Q8HRS PRN IV NAUSEA/VOMITING; Start 01/05/17 at 18:00; Stop 01/05/17 at 20:58; Status DC Acetaminophen (Tylenol) 650 mg PRN Q4HRS PRN PO FEVER; Start 01/05/17 at 18:00 ; Stop 01/05/17 at 20:58; Status DC Acetaminophen (Tylenol) 650 mg PRN Q6HRS PRN PO FEVER; Start 01/05/17 at 18:30 Ondansetron HCl (Zofran) 4 mg PRN Q6HRS PRN IV NAUSEA; Start 01/05/17 at 18:30 Hydralazine HCl (Apresoline) 10 mg PRN Q4HRS PRN IVP ELEVATED BP, SEE COMMENTS ; Start 01/05/17 at 18:30 Albuterol Sulfate (Ventolin Neb Soln) 2.5 mg PRN Q4HRS PRN NEB COUGH; Start at 18:30 Aspirin (Ecotrin) 81 mg DAILY PO Last administered on 01/06/17 09:00; Start at 09:00 Gabapentin (Neurontin) 300 mg HS PO Last administered on 01/05/17 21:57; Start 01/05/17 at 21:00 Lisinopril (Prinivil) 20 mg DAILY PO Last administered on 01/06/17 09:01; Start 01/06/17 at 09:00 Metoprolol Tartrate (Lopressor) 12.5 mg BID PO Last administered on 01/06/17 09:01; Start 01/05/17 at 21:00; Stop 01/06/17 at 11:11; Status DC Cetirizine HCl (Zyrtec) 10 mg PRN DAILY PRN PO ALLERGIES; Start 01/06/17 at 09: 00 Atorvastatin Calcium (Lipitor) 10 mg QHS PO Last administered on 01/05/17 21: 56; Start 01/05/17 at 21:00 Pantoprazole Sodium (Protonix) 40 mg DAILYAC PO Last administered on 01/06/17 09:00; Start 01/06/17 at 07:30 Throat Lozenges (Cepacol Sore Throat Lozenge) 1 willy PRN Q2HRS PRN PO SORE THROAT Last administered on 01/05/17 22:46; Start 01/05/17 at 22:15 Active Scripts Active Reported Loratadine 10 Mg Tablet 10 Mg PO PRN DAILY PRN Aspir-Low (Aspirin) 81 Mg Tablet. 1 Tab PO DAILY Lisinopril 20 Mg Tablet 20 Mg PO DAILY Lovastatin 40 Mg Tablet 40 Mg PO HS Gabapentin 300 Mg Capsule 300 Mg PO HS Metoprolol Tartrate 25 Mg Tablet 0.5 Tab PO BID Protonix (Pantoprazole Sodium) 20 Mg Tablet.dr 20 Mg PO DAILY Vitals/I & O Vital Sign - Last 24 Hours 01/05/17 01/05/17 01/05/17 01/05/17 16:15 16:45 16:50 17:15 Temp 97.5 97.5 Pulse 54 60 62 62 Resp 18 20 19 18 B/P 120/60 128/95 128/95 124/66 Pulse Ox 98 98 98 99 O2 Delivery Room Air 01/05/17 01/05/17 01/05/17 01/05/17 17:45 18:15 18:45 19:15 Pulse 69 75 77 81 Resp 20 20 20 20 B/P 128/87 132/78 136/80 143/85 Pulse Ox 98 98 99 99 01/05/17 01/05/17 01/05/17 01/05/17 19:50 20:59 22:28 23:33 Temp 98.0 97.0 98.0 97.0 Pulse 78 62 81 Resp 18 20 B/P 140/70 124/66 119/70 Pulse Ox 98 94 O2 Delivery Room Air Room Air Room Air 01/06/17 01/06/17 01/06/17 01/06/17 03:00 07:00 09:01 09:01 Temp 97.0 98.4 97.0 98.4 Pulse 63 74 74 74 Resp 18 18 B/P 146/52 140/73 140/73 140/73 Pulse Ox 96 96 O2 Delivery Room Air Room Air 01/06/17 11:16 Temp 98.8 98.8 Pulse 79 Resp 18 B/P 131/65 Pulse Ox 92 O2 Delivery Room Air Intake and Output 01/05/17 01/05/17 01/06/17 15:00 23:00 07:00 Intake Total 120 ml 120 ml Balance 120 ml 120 ml JOHAN HEMPHILL MD Jan 06, 2017 13:33
--- NOTE | 2017-01-06 19:58 | PDOC2 ---
NEUROLOGY CONSULT Date of Admission Date of Admission Full Report Dictated DATE: 01/06/17 TIME: 19:56 Current Medications Current Medications Current Medications Sodium Chloride (Iv Sodium Chloride 0.9% 500ml Bag) 500 ml @ 500 mls/hr 1X ONCE IV Last administered on 01/05/17 16:15; Start 01/05/17 at 16:15; Stop at 17:14; Status DC Ondansetron HCl (Zofran) 4 mg 1X ONCE IV Last administered on 01/05/17 16:15 ; Start 01/05/17 at 16:15; Stop 01/05/17 at 17:09; Status DC Ondansetron HCl (Zofran) 4 mg PRN Q8HRS PRN IV NAUSEA/VOMITING; Start 01/05/17 at 18:00; Stop 01/05/17 at 20:58; Status DC Acetaminophen (Tylenol) 650 mg PRN Q4HRS PRN PO FEVER; Start 01/05/17 at 18:00 ; Stop 01/05/17 at 20:58; Status DC Acetaminophen (Tylenol) 650 mg PRN Q6HRS PRN PO FEVER; Start 01/05/17 at 18:30 Ondansetron HCl (Zofran) 4 mg PRN Q6HRS PRN IV NAUSEA; Start 01/05/17 at 18:30 Hydralazine HCl (Apresoline) 10 mg PRN Q4HRS PRN IVP ELEVATED BP, SEE COMMENTS ; Start 01/05/17 at 18:30 Albuterol Sulfate (Ventolin Neb Soln) 2.5 mg PRN Q4HRS PRN NEB COUGH; Start at 18:30 Aspirin (Ecotrin) 81 mg DAILY PO Last administered on 01/06/17 09:00; Start at 09:00 Gabapentin (Neurontin) 300 mg HS PO Last administered on 01/05/17 21:57; Start 01/05/17 at 21:00 Lisinopril (Prinivil) 20 mg DAILY PO Last administered on 01/06/17 09:01; Start 01/06/17 at 09:00 Metoprolol Tartrate (Lopressor) 12.5 mg BID PO Last administered on 01/06/17 09:01; Start 01/05/17 at 21:00; Stop 01/06/17 at 11:11; Status DC Cetirizine HCl (Zyrtec) 10 mg PRN DAILY PRN PO ALLERGIES; Start 01/06/17 at 09: 00 Atorvastatin Calcium (Lipitor) 10 mg QHS PO Last administered on 01/05/17 21: 56; Start 01/05/17 at 21:00 Pantoprazole Sodium (Protonix) 40 mg DAILYAC PO Last administered on 01/06/17 09:00; Start 01/06/17 at 07:30 Throat Lozenges (Cepacol Sore Throat Lozenge) 1 willy PRN Q2HRS PRN PO SORE THROAT Last administered on 01/05/17 22:46; Start 01/05/17 at 22:15 Active Scripts Active Reported Loratadine 10 Mg Tablet 10 Mg PO PRN DAILY PRN Aspir-Low (Aspirin) 81 Mg Tablet.dr 1 Tab PO DAILY Lisinopril 20 Mg Tablet 20 Mg PO DAILY Lovastatin 40 Mg Tablet 40 Mg PO HS Gabapentin 300 Mg Capsule 300 Mg PO HS Metoprolol Tartrate 25 Mg Tablet 0.5 Tab PO BID Protonix (Pantoprazole Sodium) 20 Mg Tablet.dr 20 Mg PO DAILY Allergies Allergies: Coded Allergies: iodine (Verified Allergy, Intermediate, 01/05/17) morphine (Verified Adverse Reaction, Intermediate, VISUAL AND AUDITORY HALLUCINATIONS, 01/05/17) Vitals VITALS Vital Signs Date Time Temp Pulse Resp B/P Pulse Ox O2 Delivery O2 Flow Rate FiO2 01/06/17 15:24 98.1 69 18 119/68 97 Room Air 98.1 Labs Labs Laboratory Tests Test 01/05/17 16:10 01/05/17 22:00 01/06/17 05:35 White Blood Count 10.5x10^3/uL (4.0-11.0) 7.5x10^3/uL (4.0-11.0) Red Blood Count 4.78x10^6/uL (4.30-5.70) 4.40x10^6/uL (4.30-5.70) Hemoglobin 14.4g/dL (13.0-17.5) 13.2g/dL (13.0-17.5) Hematocrit 44.0% (39.0-53.0) 40.2% (39.0-53.0) Mean Corpuscular Volume 92fL (79-100) 91fL (79-100) Mean Corpuscular Hemoglobin 30pg (25-35) 30pg (25-35) Mean Corpuscular Hemoglobin Concent 33g/dL (31-37) 33g/dL (31-37) Red Cell Distribution Width 14.3% (11.5-14.5) 14.2% (11.5-14.5) Platelet Count 176x10^3/uL (140-400) 150x10^3/uL (140-400) Neutrophils (%) (Auto) 66% (31-73) 64% (31-73) Lymphocytes (%) (Auto) 21% (24-48) 20% (24-48) Monocytes (%) (Auto) 7% (0-9) 9% (0-9) Eosinophils (%) (Auto) 5% (0-3) 6% (0-3) Basophils (%) (Auto) 1% (0-3) 1% (0-3) Neutrophils # (Auto) 7.0x10^3uL (1.8-7.7) 4.8x10^3uL (1.8-7.7) Lymphocytes # (Auto) 2.2x10^3/uL (1.0-4.8) 1.5x10^3/uL (1.0-4.8) Monocytes # (Auto) 0.8x10^3/uL (0.0-1.1) 0.7x10^3/uL (0.0-1.1) Eosinophils # (Auto) 0.5x10^3/uL (0.0-0.7) 0.4x10^3/uL (0.0-0.7) Basophils # (Auto) 0.1x10^3/uL (0.0-0.2) 0.0x10^3/uL (0.0-0.2) Sodium Level 144mmol/L (136-145) 144mmol/L (136-145) Potassium Level 4.0mmol/L (3.5-5.1) 4.1mmol/L (3.5-5.1) Chloride Level 106mmol/L (98-107) 108mmol/L (98-107) Carbon Dioxide Level 25mmol/L (21-32) 28mmol/L (21-32) Anion Gap 13 (6-14) 8 (6-14) Blood Urea Nitrogen 21mg/dL (8-26) 19mg/dL (8-26) Creatinine 1.3mg/dL (0.7-1.3) 1.1mg/dL (0.7-1.3) Estimated GFR (Cockcroft-Gault) 53.1 64.4 BUN/Creatinine Ratio 16 (6-20) Glucose Level 120mg/dL (70-99) 102mg/dL (70-99) Calcium Level 9.3mg/dL (8.5-10.1) 8.6mg/dL (8.5-10.1) Magnesium Level 1.9mg/dL (1.8-2.4) Total Bilirubin 0.5mg/dL (0.2-1.0) Aspartate Amino Transf (AST/SGOT) 21U/L (15-37) Alanine Aminotransferase (ALT/SGPT) 25U/L (16-63) Alkaline Phosphatase 86U/L (46-116) Troponin I Quantitative < 0.017ng/mL (0.000-0.055) < 0.017ng/mL (0.000-0.055) < 0.017ng/mL (0.000-0.055) PU-Gyl-W-Type Natriuretic Peptide 115pg/mL (0-449) Total Protein 6.7g/dL (6.4-8.2) Albumin 3.7g/dL (3.4-5.0) Albumin/Globulin Ratio 1.2 (1.0-1.7) Thyroid Stimulating Hormone (TSH) 0.492uIU/mL (0.358-3.74) Laboratory Tests Test 01/05/17 22:00 01/06/17 05:35 Troponin I Quantitative < 0.017ng/mL (0.000-0.055) < 0.017ng/mL (0.000-0.055) White Blood Count 7.5x10^3/uL (4.0-11.0) Red Blood Count 4.40x10^6/uL (4.30-5.70) Hemoglobin 13.2g/dL (13.0-17.5) Hematocrit 40.2% (39.0-53.0) Mean Corpuscular Volume 91fL (79-100) Mean Corpuscular Hemoglobin 30pg (25-35) Mean Corpuscular Hemoglobin Concent 33g/dL (31-37) Red Cell Distribution Width 14.2% (11.5-14.5) Platelet Count 150x10^3/uL (140-400) Neutrophils (%) (Auto) 64% (31-73) Lymphocytes (%) (Auto) 20% (24-48) Monocytes (%) (Auto) 9% (0-9) Eosinophils (%) (Auto) 6% (0-3) Basophils (%) (Auto) 1% (0-3) Neutrophils # (Auto) 4.8x10^3uL (1.8-7.7) Lymphocytes # (Auto) 1.5x10^3/uL (1.0-4.8) Monocytes # (Auto) 0.7x10^3/uL (0.0-1.1) Eosinophils # (Auto) 0.4x10^3/uL (0.0-0.7) Basophils # (Auto) 0.0x10^3/uL (0.0-0.2) Sodium Level 144mmol/L (136-145) Potassium Level 4.1mmol/L (3.5-5.1) Chloride Level 108mmol/L (98-107) Carbon Dioxide Level 28mmol/L (21-32) Anion Gap 8 (6-14) Blood Urea Nitrogen 19mg/dL (8-26) Creatinine 1.1mg/dL (0.7-1.3) Estimated GFR (Cockcroft-Gault) 64.4 Glucose Level 102mg/dL (70-99) Calcium Level 8.6mg/dL (8.5-10.1) Thyroid Stimulating Hormone (TSH) 0.492uIU/mL (0.358-3.74) Assessment/Plan Assessment/Plan Walter Grayson is a pleasant 81-year-old man who had an episode of syncope while at home. The constellation of symptoms that he experienced also associated with bradycardia would suggest a vasovagal event. The neurologic exam was normal. I do not see evidence for stroke. I do not feel that head imaging is needed. I have ordered orthostatic blood pressures. An echocardiogram is pending to evaluate for cardiomyopathy. I appreciate being involved in his care. DOMENICO CARSON MD Jan 06, 2017 19:58
[2017-01-06] MEDS: GABAPENTIN 300 MG CAPSULE. PO SCH (20:35)
[2017-01-06] MEDS: ATORVASTATIN CALCIUM 10 MG TABLET. PO SCH (20:35)
[2017-01-07 03:20] VITALS: BP 152/72
[2017-01-07 07:00] VITALS: BP 122/77
[2017-01-07] MEDS: PANTOPRAZOLE 40 MG TABLET. PO SCH (07:47)
[2017-01-07] MEDS: ASPIRIN ENTERIC COATED 81 MG TABLET.DR. PO SCH (08:24)
[2017-01-07] MEDS: LISINOPRIL 20 MG TABLET PO SCH (08:24)
[2017-01-07 11:00] VITALS: BP 131/75
--- NOTE | 2017-01-07 11:59 | PDOC ---
PROGRESS NOTES Subjective Subjective The patient looks and feels better today. Objective Objective Vital Signs Date Time Temp Pulse Resp B/P Pulse Ox O2 Delivery O2 Flow Rate FiO2 01/07/17 11:00 97.8 70 18 131/75 94 Room Air 97.8 Intake and Output 01/07/17 07:00 Intake Total 1350 ml Output Total 300 ml Balance 1050 ml Intake Oral 1350 ml Output Urine Total 300 ml # Voids 7 # Bowel Movements 1 Physical Exam Abdomen: Normal bowel sounds Heart: Regular rate General: No acute distress Lungs: Clear to auscultation Assessment Assessment Problems Medical Problems: (1) Bradycardia Status: Acute (2) Syncope Status: Acute ASSESSMENT/PLAN 1. syncope No significant arrhythmias overnight. Continue present treatments. Echo pending. We'll arrange for outpatient event monitoring by phone tomorrow if the patient is discharged. 2. bradycardia No significant bradycardia overnight. holding av kishan blocking agents 3. CAD s/p PCI/stenting 2001, 2011 stable. CP free continue secondary prevention 4. Hypertension controlled. 5. HLP statin Comment Review of Relevant I have reviewed the following items aiden (where applicable) has been applied. Labs Laboratory Tests Test 01/05/17 16:10 01/05/17 22:00 01/06/17 05:35 White Blood Count 10.5x10^3/uL (4.0-11.0) 7.5x10^3/uL (4.0-11.0) Red Blood Count 4.78x10^6/uL (4.30-5.70) 4.40x10^6/uL (4.30-5.70) Hemoglobin 14.4g/dL (13.0-17.5) 13.2g/dL (13.0-17.5) Hematocrit 44.0% (39.0-53.0) 40.2% (39.0-53.0) Mean Corpuscular Volume 92fL (79-100) 91fL (79-100) Mean Corpuscular Hemoglobin 30pg (25-35) 30pg (25-35) Mean Corpuscular Hemoglobin Concent 33g/dL (31-37) 33g/dL (31-37) Red Cell Distribution Width 14.3% (11.5-14.5) 14.2% (11.5-14.5) Platelet Count 176x10^3/uL (140-400) 150x10^3/uL (140-400) Neutrophils (%) (Auto) 66% (31-73) 64% (31-73) Lymphocytes (%) (Auto) 21% (24-48) 20% (24-48) Monocytes (%) (Auto) 7% (0-9) 9% (0-9) Eosinophils (%) (Auto) 5% (0-3) 6% (0-3) Basophils (%) (Auto) 1% (0-3) 1% (0-3) Neutrophils # (Auto) 7.0x10^3uL (1.8-7.7) 4.8x10^3uL (1.8-7.7) Lymphocytes # (Auto) 2.2x10^3/uL (1.0-4.8) 1.5x10^3/uL (1.0-4.8) Monocytes # (Auto) 0.8x10^3/uL (0.0-1.1) 0.7x10^3/uL (0.0-1.1) Eosinophils # (Auto) 0.5x10^3/uL (0.0-0.7) 0.4x10^3/uL (0.0-0.7) Basophils # (Auto) 0.1x10^3/uL (0.0-0.2) 0.0x10^3/uL (0.0-0.2) Sodium Level 144mmol/L (136-145) 144mmol/L (136-145) Potassium Level 4.0mmol/L (3.5-5.1) 4.1mmol/L (3.5-5.1) Chloride Level 106mmol/L (98-107) 108mmol/L (98-107) Carbon Dioxide Level 25mmol/L (21-32) 28mmol/L (21-32) Anion Gap 13 (6-14) 8 (6-14) Blood Urea Nitrogen 21mg/dL (8-26) 19mg/dL (8-26) Creatinine 1.3mg/dL (0.7-1.3) 1.1mg/dL (0.7-1.3) Estimated GFR (Cockcroft-Gault) 53.1 64.4 BUN/Creatinine Ratio 16 (6-20) Glucose Level 120mg/dL (70-99) 102mg/dL (70-99) Calcium Level 9.3mg/dL (8.5-10.1) 8.6mg/dL (8.5-10.1) Magnesium Level 1.9mg/dL (1.8-2.4) Total Bilirubin 0.5mg/dL (0.2-1.0) Aspartate Amino Transf (AST/SGOT) 21U/L (15-37) Alanine Aminotransferase (ALT/SGPT) 25U/L (16-63) Alkaline Phosphatase 86U/L (46-116) Troponin I Quantitative < 0.017ng/mL (0.000-0.055) < 0.017ng/mL (0.000-0.055) < 0.017ng/mL (0.000-0.055) SS-Hjj-L-Type Natriuretic Peptide 115pg/mL (0-449) Total Protein 6.7g/dL (6.4-8.2) Albumin 3.7g/dL (3.4-5.0) Albumin/Globulin Ratio 1.2 (1.0-1.7) Thyroid Stimulating Hormone (TSH) 0.492uIU/mL (0.358-3.74) Medications Current Medications Sodium Chloride (Iv Sodium Chloride 0.9% 500ml Bag) 500 ml @ 500 mls/hr 1X ONCE IV Last administered on 01/05/17t 16:15; Start 01/05/17 at 16:15; Stop at 17:14; Status DC Ondansetron HCl (Zofran) 4 mg 1X ONCE IV Last administered on 01/05/17t 16:15 ; Start 01/05/17 at 16:15; Stop 01/05/17 at 17:09; Status DC Ondansetron HCl (Zofran) 4 mg PRN Q8HRS PRN IV NAUSEA/VOMITING; Start 01/05/17 at 18:00; Stop 01/05/17 at 20:58; Status DC Acetaminophen (Tylenol) 650 mg PRN Q4HRS PRN PO FEVER; Start 01/05/17 at 18:00 ; Stop 01/05/17 at 20:58; Status DC Acetaminophen (Tylenol) 650 mg PRN Q6HRS PRN PO FEVER Last administered on 01/07 07:47; Start 01/05/17 at 18:30 Ondansetron HCl (Zofran) 4 mg PRN Q6HRS PRN IV NAUSEA; Start 01/05/17 at 18:30 Hydralazine HCl (Apresoline) 10 mg PRN Q4HRS PRN IVP ELEVATED BP, SEE COMMENTS ; Start 01/05/17 at 18:30 Albuterol Sulfate (Ventolin Neb Soln) 2.5 mg PRN Q4HRS PRN NEB COUGH; Start at 18:30 Aspirin (Ecotrin) 81 mg DAILY PO Last administered on 01/07/17 08:24; Start at 09:00 Gabapentin (Neurontin) 300 mg HS PO Last administered on 01/06/17 20:35; Start 01/05/17 at 21:00 Lisinopril (Prinivil) 20 mg DAILY PO Last administered on 01/07/17 08:24; Start 01/06/17 at 09:00 Metoprolol Tartrate (Lopressor) 12.5 mg BID PO Last administered on 01/06/17 09:01; Start 01/05/17 at 21:00; Stop 01/06/17 at 11:11; Status DC Cetirizine HCl (Zyrtec) 10 mg PRN DAILY PRN PO ALLERGIES; Start 01/06/17 at 09: 00 Atorvastatin Calcium (Lipitor) 10 mg QHS PO Last administered on 01/06/17 20: 35; Start 01/05/17 at 21:00 Pantoprazole Sodium (Protonix) 40 mg DAILYAC PO Last administered on 01/07/17 07:47; Start 01/06/17 at 07:30 Throat Lozenges (Cepacol Sore Throat Lozenge) 1 willy PRN Q2HRS PRN PO SORE THROAT Last administered on 01/05/17 22:46; Start 01/05/17 at 22:15 Active Scripts Active Reported Loratadine 10 Mg Tablet 10 Mg PO PRN DAILY PRN Aspir-Low (Aspirin) 81 Mg Tablet.dr 1 Tab PO DAILY Lisinopril 20 Mg Tablet 20 Mg PO DAILY Lovastatin 40 Mg Tablet 40 Mg PO HS Gabapentin 300 Mg Capsule 300 Mg PO HS Metoprolol Tartrate 25 Mg Tablet 0.5 Tab PO BID Protonix (Pantoprazole Sodium) 20 Mg Tablet.dr 20 Mg PO DAILY Vitals/I & O Vital Sign - Last 24 Hours 01/06/17 01/06/17 01/06/17 01/06/17 15:24 19:00 20:00 22:35 Temp 98.1 98.0 98.0 98.1 98.0 98.0 Pulse 69 74 76 Resp B/P 119/68 138/82 130/74 Pulse Ox 97 99 97 O2 Delivery Room Air Room Air Room Air Room Air 01/06/17 01/06/17 01/07/17 01/07/17 22:36 22:36 03:20 07:00 Temp 97.9 97.8 97.9 97.8 Pulse 84 81 73 71 Resp 18 B/P 156/85 146/90 152/72 122/77 Pulse Ox 96 94 O2 Delivery Room Air Room Air 01/07/17 01/07/17 08:24 11:00 Temp 97.8 97.8 Pulse 71 70 Resp 18 B/P 122/77 131/75 Pulse Ox 94 O2 Delivery Room Air Intake and Output 01/06/17 01/06/17 01/07/17 15:00 23:00 07:00 Intake Total 240 ml 360 ml 750 ml Output Total 300 ml Balance -60 ml 360 ml 750 ml MERE FLORES MD Jan 07, 2017 11:59
--- NOTE | 2017-01-07 12:28 | CARD ---
APPROVED REPORT EXAM: Two-dimensional and M-mode echocardiogram with Doppler and color Doppler. Other Information Quality : Good INDICATION Syncope 2D DIMENSIONS RVDd3.3 (2.9-3.5cm)Left Atrium(2D)3.9 (1.6-4.0cm) IVSd1.3 (0.7-1.1cm)Aortic Root(2D)3.7 (2.0-3.7cm) LVDd4.4 (3.9-5.9cm)LVOT Diameter2.2 (1.8-2.4cm) PWd1.1 (0.7-1.1cm)LVDs2.6 (2.5-4.0cm) FS (%) 30.0 %SV65.0 ml LVEF(%)60.0 (>50%) Aortic Valve AoV Peak Mic.107.3cm/sAoV VTI20.7cm AO Peak GR.4.6mmHgLVOT VTI 14.78cm AO Mean GR.3mmHgAVA (VTI)2.80cm2 Mitral Valve MV E Pdjcnyta64.3cm/sMV DECEL [id number] MV A Qywkrtfu72.3cm/sE/A Ratio1.1 TDI Lateral E' P. V7.85cm/sMedial E' P. V7.79cm/s E/Lateral E'9.3E/Medial E'9.4 Tricuspid Valve TR P. Kgerycpv748do/sRAP [id number] TR Peak Gr.04fjOnBJIT80juWk Pulmonary Vein S1 Eeucaebu84.8cm/sS2 Gqrrpqmb07.73cm/s D2 Wibpmsie49.7cm/sPVa [id number] LEFT VENTRICLE The left ventricle is normal size. There is mild concentric left ventricular hypertrophy. The left ve ntricular systolic function is normal and the ejection fraction is within normal range. The Ejection Fraction is 60-65%. There is normal LV segmental wall motion. Transmitral Doppler flow pattern is Gra de I-abnormal relaxation pattern. RIGHT VENTRICLE The right ventricle is normal size. The right ventricular systolic function is normal. ATRIA The left atrium size is normal. The right atrium size is normal. The interatrial septum is intact wit h no evidence for an atrial septal defect or patent foramen ovale as noted on 2-D or Doppler imaging. AORTIC VALVE The aortic valve is mildly thickened but opens well. Doppler and Color Flow revealed no significant a ortic regurgitation. There is no significant aortic valvular stenosis. MITRAL VALVE The mitral valve is calcified but opens well. Mitral annular calcification is mild. There is no evide nce of mitral valve prolapse. There is no mitral valve stenosis. Doppler and Color-flow revealed trac e to mild mitral regurgitation. TRICUSPID VALVE The tricuspid valve is normal in structure and function. Doppler and Color Flow revealed trace tricus pid regurgitation. The PA pressure was estimated at 35 mmHg. There is no tricuspid valve stenosis. PULMONIC VALVE The pulmonary valve is normal in structure and function. Doppler and Color Flow revealed mild pulmoni c valvular regurgitation. There is no pulmonic valvular stenosis. GREAT VESSELS The aortic root is normal in size. The ascending aorta is mildly dilated at 3.6 cm. The IVC is normal in size and collapses >50% with inspiration. PERICARDIAL EFFUSION There is no evidence of significant pericardial effusion. Critical Notification Critical Value: No <Conclusion> The left ventricle is normal size. The left ventricular systolic function is normal and the ejection fraction is within normal range. The Ejection Fraction is 60-65%. There is mild concentric left ventricular hypertrophy. There is no significant aortic valvular stenosis. Doppler and Color Flow revealed no significant aortic regurgitation. Doppler and Color-flow revealed trace to mild mitral regurgitation. Doppler and Color Flow revealed trace tricuspid regurgitation. The PA pressure was estimated at 35 mmHg. The ascending aorta is mildly dilated at 3.6 cm.
--- NOTE | 2017-01-07 14:27 | PDOC3 ---
Discharge Summary Visit Information Date of Admission: Jan 05, 2017 Date of Discharge: Jan 07, 2017 Admitting Diagnosis Comment: 1. syncope, 2/2 vasovagal 2. bradycardia, sinus, on metoprolol 3. h/o CAD with 2 stents 2011 4. HTN 5. smoke cigars Final Diagnosis Problems Medical Problems: (1) Bradycardia Status: Acute (2) Syncope Status: Acute (3) Vasovagal syncope Status: Acute Brief Hospital Course Allergies Allergies Coded Allergies Type Severity Reaction Last Updated Verified iodine Allergy Intermediate 01/05/17 Yes morphine Adverse Reaction Intermediate VISUAL AND AUDITORY HALLUCINATIONS 01/05 Yes Vital Signs Vital Signs Date Time Temp Pulse Resp B/P Pulse Ox O2 Delivery O2 Flow Rate FiO2 01/07/17 11:00 97.8 70 18 131/75 94 Room Air 97.8 Lab Results Laboratory Tests Test 01/05/17 16:10 01/05/17 22:00 01/06/17 05:35 White Blood Count 10.5x10^3/uL (4.0-11.0) 7.5x10^3/uL (4.0-11.0) Red Blood Count 4.78x10^6/uL (4.30-5.70) 4.40x10^6/uL (4.30-5.70) Hemoglobin 14.4g/dL (13.0-17.5) 13.2g/dL (13.0-17.5) Hematocrit 44.0% (39.0-53.0) 40.2% (39.0-53.0) Mean Corpuscular Volume 92fL (79-100) 91fL (79-100) Mean Corpuscular Hemoglobin 30pg (25-35) 30pg (25-35) Mean Corpuscular Hemoglobin Concent 33g/dL (31-37) 33g/dL (31-37) Red Cell Distribution Width 14.3% (11.5-14.5) 14.2% (11.5-14.5) Platelet Count 176x10^3/uL (140-400) 150x10^3/uL (140-400) Neutrophils (%) (Auto) 66% (31-73) 64% (31-73) Lymphocytes (%) (Auto) 21% (24-48) 20% (24-48) Monocytes (%) (Auto) 7% (0-9) 9% (0-9) Eosinophils (%) (Auto) 5% (0-3) 6% (0-3) Basophils (%) (Auto) 1% (0-3) 1% (0-3) Neutrophils # (Auto) 7.0x10^3uL (1.8-7.7) 4.8x10^3uL (1.8-7.7) Lymphocytes # (Auto) 2.2x10^3/uL (1.0-4.8) 1.5x10^3/uL (1.0-4.8) Monocytes # (Auto) 0.8x10^3/uL (0.0-1.1) 0.7x10^3/uL (0.0-1.1) Eosinophils # (Auto) 0.5x10^3/uL (0.0-0.7) 0.4x10^3/uL (0.0-0.7) Basophils # (Auto) 0.1x10^3/uL (0.0-0.2) 0.0x10^3/uL (0.0-0.2) Sodium Level 144mmol/L (136-145) 144mmol/L (136-145) Potassium Level 4.0mmol/L (3.5-5.1) 4.1mmol/L (3.5-5.1) Chloride Level 106mmol/L (98-107) 108mmol/L (98-107) Carbon Dioxide Level 25mmol/L (21-32) 28mmol/L (21-32) Anion Gap 13 (6-14) 8 (6-14) Blood Urea Nitrogen 21mg/dL (8-26) 19mg/dL (8-26) Creatinine 1.3mg/dL (0.7-1.3) 1.1mg/dL (0.7-1.3) Estimated GFR (Cockcroft-Gault) 53.1 64.4 BUN/Creatinine Ratio 16 (6-20) Glucose Level 120mg/dL (70-99) 102mg/dL (70-99) Calcium Level 9.3mg/dL (8.5-10.1) 8.6mg/dL (8.5-10.1) Magnesium Level 1.9mg/dL (1.8-2.4) Total Bilirubin 0.5mg/dL (0.2-1.0) Aspartate Amino Transf (AST/SGOT) 21U/L (15-37) Alanine Aminotransferase (ALT/SGPT) 25U/L (16-63) Alkaline Phosphatase 86U/L (46-116) Troponin I Quantitative < 0.017ng/mL (0.000-0.055) < 0.017ng/mL (0.000-0.055) < 0.017ng/mL (0.000-0.055) DI-Bnj-H-Type Natriuretic Peptide 115pg/mL (0-449) Total Protein 6.7g/dL (6.4-8.2) Albumin 3.7g/dL (3.4-5.0) Albumin/Globulin Ratio 1.2 (1.0-1.7) Thyroid Stimulating Hormone (TSH) 0.492uIU/mL (0.358-3.74) Brief Hospital Course Mr. Grayson is a 81 old male admitted for syncope, clinical picture fits vaso vagal cause (see H and P). Also on BB, had some bradycardia, Cards stopped bB. Echo ok, ready for home, [facility]Ards to arrange OP event monitor. COunselled and educated, at bedside. NO replacement Anti hypertensives needed as BP is running good, systolic 130s in this elderly Pt seen and examined Discharge Information Condition at Discharge: Improved, Stable Disposition/Orders: D/C to Home Scheduled Aspirin (Aspir-Low) 1 TAB PO DAILY (Reported) Gabapentin (Gabapentin) 300 MG PO HS (Reported) Lisinopril (Lisinopril) 20 MG PO DAILY (Reported) Lovastatin (Lovastatin) 40 MG PO HS (Reported) Metoprolol Tartrate (Metoprolol Tartrate) 0.5 TAB PO BID (Reported) Pantoprazole Sodium (Protonix) 20 MG PO DAILY (Reported) Scheduled PRN Loratadine (Loratadine) 10 MG PO PRN DAILY PRN PRN ALLERGIES (Reported) JOHAN HEMPHILL MD Jan 07, 2017 14:26
[2017-01-07 15:00] VITALS: BP 129/73
--- NOTE | 2017-01-07 21:27 | CONS ---
DATE OF CONSULTATION: 01/06/2017 REFERRING PHYSICIAN: Dr. Green. REASON FOR CONSULTATION: Syncope. HISTORY OF PRESENT ILLNESS: The patient is a very pleasant 81-year-old man admitted to [facility] for an episode of syncope. He reported this was at 3 in the afternoon. He had eaten breakfast and lunch. He was sitting in a chair when he started to feel weak, nauseated, clammy and sweaty. His vision was graying out. He then lost consciousness for 1 to 2 minutes. His reports and when paramedics arrived, they measured his pulse rate at 39. After he awoke, he felt like he had to go to the bathroom. He has not had a similar spell previously. He feels back to his usual self. This was not associated with focal numbness or weakness. He has had no difficulty with speech or cognition. PAST MEDICAL HISTORY: 1. Coronary artery disease, status post stents in 2001 and 2011. 2. Hypertension. 3. Hyperlipidemia. 4. Asthma. 5. Gastroesophageal reflux disease. 6. Osteoarthritis with especially involvement of the left knee and the right shoulder. 7. Benign prostatic hypertrophy. 8. Right total hip replacement. 9. Tonsillectomy. ALLERGIES: IODINE AND MORPHINE. MEDICATIONS PRIOR TO ADMISSION: Aspirin 81 mg, gabapentin 300 mg at night, lisinopril 20 mg, loratadine 10 mg, lovastatin 40 mg, metoprolol 12.5 mg twice per day and Protonix 20 mg. FAMILY HISTORY: Coronary artery disease, heart disease and hypertension are in the family. SOCIAL HISTORY: He is and retired. He smokes cigars once or twice a week. He does not drink any alcohol or use recreational drugs. He relocated in this region to live in an apartment to be near his children. REVIEW OF SYSTEMS: He does not complain of any headache. He has had no change of vision. He does have to wear a contact lens in his right eye because he had cataract surgery and there was no lens implant performed. He has not had any change in cognition or speech. There has been no trouble with swallowing or choking. He has not had shortness of breath, cough or cold. There has been no chest or abdominal pain. He does have some bone and joint pain. There has been no fever or rash. He has not had any gastrointestinal complaint other than the brief nausea with the spell. He does not have any genitourinary complaints other than nocturia times 1 to 2 because of the prostatic hypertrophy. He does not have any endocrine complaints. There have been no psychiatric complaints. He does not complain of numbness. He does not complain of focal weakness. PHYSICAL EXAMINATION: VITAL SIGNS: The blood pressure was 119/68, pulse 69, respirations 18, temperature 98.1 degrees Fahrenheit. Oximetry was 97% on room air. His weight was 235 pounds, height 70 inches and a calculated body mass index of 33.7. GENERAL: He was alert, awake and cooperative. Speech was fluent and clear. He had a good fund of recent and remote knowledge. Attention and concentration was intact. He was fully oriented. NEUROLOGIC: Examination of the cranial nerves revealed visual li were full to confrontation. Extraocular movements were intact. He did have disconjugate gaze at times. This is something that is longstanding for him. His glasses do have a built-in prism. Pursuit movements were smooth and saccadic eye movements were without dysmetria. Pupils were 4-5 mm. Funduscopic exam did not reveal papilledema. Facial sensation was intact. The muscles of mastication and facial expression were powerful symmetrically. Hearing was intact to finger rub. The palate arched symmetrically and the tongue was midline with full range of motion. Sternocleidomastoid and trapezius were powerful. Muscle bulk and tone was normal. There was no arm drift or abnormal movement. Power was full and symmetric in the upper and lower extremities. Reflexes were 1/4 at the elbows, knees and ankles. The toes were not upgoing. Coordination testing with [id number], [id number], fine motor and rapid alternating movements was well performed. The sensory exam was intact to pain, light touch, proprioception, graphesthesia, cold thermal and vibration. There was no extinction to double simultaneous stimulation. He was able to stand and bear weight. He was able to heel and toe walk with some balance support. The Romberg stance was negative. Auscultation of the carotid arteries did not reveal a bruit. Heart rhythm was regular without a murmur. Peripheral pulses were 2/4 and symmetric in the wrist and in the feet. There was edema of the feet and ankles, the left worse than the right. LABORATORY DATA: CBC revealed a normal white blood cell count, hemoglobin, hematocrit and platelet count. Chemistries revealed normal sodium and potassium, but chloride was elevated to 108. CO2 was normal. BUN and creatinine were normal. The GFR calculated at 64.4. Glucose fasting was 102. Calcium was normal. Troponin was measured on three occasions and was not elevated. TSH was normal. Chest x-ray was performed yesterday revealing no definite focal area airspace consolidation. IMPRESSION: The patient is a very pleasant 81-year-old man who had an episode of syncope yesterday. The constellation of symptoms that he experienced would be quite typical for a vasovagal syncopal event. The trigger for this is not clear, but may have been some gastrointestinal trigger. His neurologic exam was completely normal. There is no evidence for stroke. He has been maintained on metoprolol for about 5 years, so it seems unlikely that suddenly this would block him down to that degree that would cause syncope. I am relieved that the neurologic exam was normal. Imaging of the head, I do not feel compel that he needs any imaging of his head. RECOMMENDATIONS: We can check some orthostatic blood pressures. We discussed that if a spell starts to come on that he should get flat immediately and stay this way for about 25 minutes for the spell to pass. He needs to drink plenty of water. I will await the result of the echocardiogram to make certain there is not an occult cardiomyopathy contributing. I appreciate being involved in his care. DOMENICO CARSON MD DR: DANIEL/elle JOB#: [id number] / [id number] BRIANNA Aponte MD
== END 2017-01-07 16:50 | disposition home or self-care (01) | DRG 312 ==
LOC: ER 15:49 → 5 SOUTH 17:49
PROVIDERS: ADMIT Internal Medicine; ATTEND Internal Medicine
DX: R55 Syncope and collapse (principal); E78.5 Hyperlipidemia, unspecified; F17.210 Nicotine dependence, cigarettes, uncomplicated; I10 Essential (primary) hypertension; I25.10 Atherosclerotic heart disease of native coronary artery without angina pectoris; J45.909 Unspecified asthma, uncomplicated; K21.9 Gastro-esophageal reflux disease without esophagitis; Z96.641 Presence of right artificial hip joint; R00.1 Bradycardia, unspecified; M19.90 Unspecified osteoarthritis, unspecified site; N40.0 Benign prostatic hyperplasia without lower urinary tract symptoms; Z82.49 Family history of ischemic heart disease and other diseases of the circulatory system; Z95.5 Presence of coronary angioplasty implant and graft; Z91.041 Radiographic dye allergy status; Z88.5 Allergy status to narcotic agent
CPT/HCPCS: 36415; 71010; 80048; 80053; 83735; 83880; 84443; 84484; 85027; 93005; 93306; 94250; 94760; 96374; J2405; J7040; 99285-25